=== PATIENT | male | born 1955 | race Caucasian/White ===

== ENCOUNTER 2017-02-24 12:28 | Emergency (ER) | payer OTHER ==
[~2017-02-24] VITALS: Ht 198.1 cm; Wt 204.6 kg
[2017-02-24 12:45] VITALS: BP 167/96; PULSE 85; RESP 16; O2SAT 96
--- NOTE | 2017-02-24 12:59 | ED.REPORT ---
HPI-Rash / Abscess Date of Service Feb 24, 2017 ED Provider: History of Present Illness: red hot area on back of left lower leg. noticed area late evening. no hx. no injury. denies drug use. primary care is no one. normally healthy, works at [employer] 2nd shift Nursing Notes Stated Complaint: INSECT BITE Chief Complaint: Extremity Trauma Nursing Notes Reviewed: Yes Allergies: Coded Allergies: No Known Allergies (Unverified , 02/24/17) General Time Seen by MD: 12:58 Chief Complaint Red area Hx Obtained From: Patient Onset Occurred: Yesterday Symptom Duration: Since onset Past Medical History Past Medical History Denies: Asthma, Diabetes mellitus Past Surgical History denies Smoking History Never Smoker Social History Alcohol Use: Denies alcohol use Drug Use: Denies drug use Occupation lives by self, works at [employer] 02/24/2017 Ambulatory Status Independent Review of Systems Basic Review of Systems : No dysuria, No frequency Neurologic: NL mental status, No weakness, No numbness Psychiatric: Normal thought content Physical Exam Initial Vital Signs Vital Signs (First) Date Time Temp Pulse Resp B/P Pulse Ox O2 Delivery O2 Flow Rate FiO2 02/24/17 12:45 35.6 85 16 167/96 96 Room Air Initial VS: Reviewed, Vital signs abnormal Head / Eyes: Atraumatic, Normocephalic, PERRL ENT: Mucous membranes moist, Conjunctiva normal, No scleral icterus Neck: Supple, Non-tender, Full range of motion Respiratory: Breath sounds normal, Clear to auscultation, No respiratory distress Cardiovascular: Regular rate & rhythm, Heart sounds normal, Intact distal pulses Abdomen / GI: Soft, Non-tender, No guarding, No rebound, No distention Back: No CVA tenderness Lymphatic: No lymphadenopathy Extremities: Vascular intact, Neuro intact, No swelling, No tenderness Neurologic: Alert, Oriented, Nonfocal Psychiatric: Mood/affect normal, Behavior normal, Normal thought content General/Constitutional: Awake, Alert, No acute distress, Well appearing, Well developed, Well hydrated, Well nourished, Cooperative, Not toxic appearing Rash / Lesion Notes: area of increased erthyma with increased warmth on posterior left leg Respiratory / Chest: Atraumatic, Breath sounds NL, Breath sounds = bilat, No respiratory distress Cardiovascular: Heart rate NL, Regular rhythm, Heart sounds NL, No gallop Interpretation & Diagnostics Lab Results Interpretation Result Diagram: 02/24/17 1315 02/24/17 1315 Test 02/24/17 13:15 White Blood Count 14.5th/mm3 (3.8-10.1) Red Blood Count 4.98mil/mm3 (4.40-5.80) Hemoglobin 15.7g/dL (13.8-17.2) Hematocrit 45.4% (41.0-50.0) Mean Corpuscular Volume 91.2fL (81-100) Mean Corpuscular Hemoglobin 31.5pg (27.0-35.0) Mean Corpuscular Hemoglobin Concent 34.6% (32.0-37.0) Red Cell Distribution Width 12.8% (12.3-15.4) Platelet Count 187bil/L (150-400) Neutrophils (%) (Auto) 71.7% (40-74) Lymphocytes (%) (Auto) 15.2% (14-46) Monocytes (%) (Auto) 10.1% (4-12) Eosinophils (%) (Auto) 2.6% (0-5) Basophils (%) (Auto) 0.1% (0-3) Sodium Level 138mEq/L (134-144) Potassium Level 4.0mEq/L (3.5-5.2) Chloride Level 100mEq/L (97-108) Carbon Dioxide Level 27mmol/L (18-29) Blood Urea Nitrogen 13mg/dL (6-24) Creatinine 0.96mg/dL (0.76-1.27) Estimat Glomerular Filtration Rate 85mL/min (>59) Glucose Level 165mg/dL (60-99) Lactic Acid Level 1.1mmol/L (0.4-2.0) Calcium Level 9.1mg/dL (8.5-10.1) Total Bilirubin 0.7mg/dL (0.0-1.2) Aspartate Amino Transf (AST/SGOT) 14U/L (0-50) Alanine Aminotransferase (ALT/SGPT) 16U/L (0-44) Alkaline Phosphatase 73U/L (25-160) Total Protein 6.6g/dL (6.4-8.4) Albumin 3.8g/dL (3.4-5.0) US Soft Tissue/Musculoskeletal PROCEDURE: US VEINOUS LEG DUPLEX UNILATERAL, LEFT INDICATIONS: left leg hot red swollen TECHNIQUE: Real-time imaging, as well as color and pulse Doppler interrogation, were performed of the lower extremity deep veins from the inguinal ligament to the popliteal fossa. COMPARISON: None. FINDINGS: The deep veins are normally compressible, and free of intraluminal thrombus. Color and pulse Doppler demonstrate normal phasic intraluminal flow. There is normal augmentation response to distal compression maneuver. Edema present. IMPRESSION: No deep venous thrombosis identified within the left lower extremity. Dictated by: Srinivas ARIAS Interpreted: Dedra Mejia MD on 02/24/2017 at 13:59 Transcribed by: TIFFANIE on 02/24/2017 at 13:59 Approved by: Dedra Mejia M.D. on 02/24/2017 at 14:25 Re-Eval/Medical Decision Med Decision/Clinical Course 61 year old male presents to the ER for evualation of area of increased redness as well as increased warmth on posterior leg. denies injury. US negative for clot formation. No sign of any DVT or compartment syndrome. Discussed with patient need to establish in primary care for increased blood sugar and increased blood pressure reading Discharge & Departure Impression: Primary Impression: Cellulitis Site of cellulitis of extremity: lower extremity Laterality: left Additional Impressions: Increased blood glucose Elevated blood pressure reading Disposition: Home Patient Instructions: Cellulitis (ED) Additional Instructions: The ultrasound is negative for any clot formation. You received antibiotics in the ER. Continue with bactrim and keflex. Need to elevate your leg. Up only for eating and bathroom privileges. Return to the ER if the redness goes outside of the line by more than 1 inch. You will need a recheck here on Monday . You also need to establish in primary care. Your blood sugar was elevated at 165 and your blood pressure was elevated also. Please make an appointment with the residency clinic. Referrals: Selma Moy PA-C (PCP) EDSupervising Provider for APC: Dimitri Fallon MD copies to: Selma Moy PA-C, Sue ARNP Feb 24, 2017 12:58
[2017-02-24] MEDS ORDERED: Trimethoprim-Sulfa 160 mg-800 mg Tablet PO ONE (13:05)
[2017-02-24 13:31] LABS: BASOPHILS % (AUTO) 0.1 % (0-3); EOSINOPHILS % (AUTO) 2.6 % (0-5); MONOCYTES % (AUTO) 10.1 % (4-12); Mean Corpuscular Hemoglobin 31.5 pg (27.0-35.0); Mean Corpuscular Volume 91.2 fL (81-100); NEUTROPHILS % (AUTO) 71.7 % (40-74); Platelet Count 187 bil/L (150-400)
--- NOTE | 2017-02-24 14:00 | DRSVH ---
PROCEDURE: US VEINOUS LEG DUPLEX UNILATERAL, LEFT INDICATIONS: left leg hot red swollen TECHNIQUE: Real-time imaging, as well as color and pulse Doppler interrogation, were performed of the lower extr emity deep veins from the inguinal ligament to the popliteal fossa. COMPARISON: None. FINDINGS: The deep veins are normally compressible, and free of intraluminal thrombus. Color and pu lse Doppler demonstrate normal phasic intraluminal flow. There is normal augmentation response to di stal compression maneuver. Edema present. IMPRESSION: No deep venous thrombosis identified within the left lower extremity. Dictated by: Srinivas ARIAS Interpreted: Dedra Mejia MD on 02/24/2017 at 13:59 Transcribed by: TIFFANIE on 02/24/2017 at 13:59 Approved by: Dedra Mejia M.D. on 02/24/2017 at 14:25
[2017-02-24 14:52] VITALS: BP 153/103; PULSE 87; O2SAT 93
== END 2017-02-24 14:54 | disposition home or self-care (01) ==
LOC: SED 12:28
DX: L03.116 Cellulitis of left lower limb (principal); R73.9 Hyperglycemia, unspecified; R03.0 Elevated blood-pressure reading, without diagnosis of hypertension

== ENCOUNTER 2017-02-26 13:23 | Emergency (ER) | payer OTHER ==
[~2017-02-26] VITALS: Ht 198.1 cm; Wt 204.6 kg
[2017-02-26 13:37] VITALS: BP 178/98; PULSE 92; RESP 17; O2SAT 98
--- NOTE | 2017-02-26 13:45 | ED.REPORT ---
[facility]-Recheck W/B/S Date of Service Feb 26, 2017 ED Provider: Lisa Da Silva History of Present Illness: greatly improved, decreased redness and sensitivity on lower left leg. Nursing Notes Stated Complaint: FOLLOW UP Chief Complaint: Skin Rash/Abscess Nursing Notes Reviewed: Yes Allergies: Coded Allergies: No Known Allergies (Unverified , 02/24/17) General Time Seen by Provider: 13:43 Chief Complaint Wound check Wound / Injury Type: Cellulitis Prior Tx of Wound / Injury: Antibiotics, oral Hx Obtained From: Patient Onset Occurred: 3 days ago Past Medical History Past Surgical History denies Smoking History Never Smoker Social History Alcohol Use: Denies alcohol use Drug Use: Denies drug use Occupation lives by self, works at [employer] 02/24/2017 Ambulatory Status Independent Review of Systems Basic Review of Systems Eyes: Vision NL, No discharge Hematologic: No bleeding, No bruising Psychiatric: Normal thought content Physical Exam Initial Vital Signs Vital Signs (First) Date Time Temp Pulse Resp B/P Pulse Ox O2 Delivery O2 Flow Rate FiO2 02/26/17 13:37 36.4 92 17 178/98 98 Room Air Initial VS: Reviewed, Vital signs abnormal General/Constitutional: Well-developed, Well-nourished Head / Eyes: Atraumatic, Normocephalic, PERRL ENT: Mucous membranes moist, Conjunctiva normal, No scleral icterus Neck: Supple, Non-tender, Full range of motion Respiratory: Breath sounds normal, Clear to auscultation, No respiratory distress Cardiovascular: Regular rate & rhythm, Heart sounds normal, Intact distal pulses Abdomen / GI: Soft, Non-tender, No guarding, No rebound, No distention Back: No CVA tenderness Lymphatic: No lymphadenopathy Extremities: Vascular intact, Neuro intact, No swelling, No tenderness Neurologic: Alert, Oriented, Nonfocal Psychiatric: Mood/affect normal, Behavior normal, Normal thought content Rash / Lesion Notes: decreased erthyma and decreased warmth at cellulitis site on left lower leg. Re-Eval/Medical Decision Med Decision/Clinical Course 61 year old male presents for re check of cellulitis on left lower leg. Patient reports decreased erthyma and decreased warmth. No sign of compartment syndrome, abscess or DVT. Discharge & Departure Impression: Primary Impression: Elevated blood pressure reading Additional Impression: Cellulitis Site of cellulitis of extremity: lower extremity Laterality: left Disposition: Home Patient Instructions: Cellulitis (ED) Additional Instructions: The redness and increased warmth of the leg has greatly decreased. Continue with the antibiotics until you are done. An additional 2 more days off of work is provided. Please follow with Selma Moy for a recheck of the cellulitis and your blood pressure and elevated glucose later this week. Return with any concerns. Referrals: Selma Moy PA-C (PCP) EDSupervising Provider for APC: Dipak Gallegos DO copies to: Selma Moy PA-C, Sue ARNP Feb 26, 2017 13:45
[2017-02-26 14:23] VITALS: BP 178/98; PULSE 92; RESP 17; O2SAT 98
== END 2017-02-26 14:24 | disposition home or self-care (01) ==
LOC: SED 13:23
DX: L03.116 Cellulitis of left lower limb (principal); R03.0 Elevated blood-pressure reading, without diagnosis of hypertension